=== PATIENT | female | born 1995 | race Caucasian/White ===

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

== ENCOUNTER 2017-09-21 13:14 | Emergency (ER) | payer OTHER ==
[~2017-09-21] VITALS: Ht 160 cm; Wt 47.9 kg
[~2017-09-21 13:14] MED LIST: AMPH15CA7 PO; VNTHFA/IN INH
[2017-09-21 13:20] VITALS: Ht 160 cm; Wt 47.9 kg
[2017-09-21 14:59] VITALS: BP 114/74; PULSE 84; O2SAT 96
--- NOTE | 2017-09-22 16:38 | EMERGENCY ROOM VISIT NOTE ---
ED Visit Note First contact with patient: 13:29 Chief Complaint: Feeling tired. History of Present Illness: Ms. Rao is a 22-year-old white female who ambulates into the ED accompanied by female friend. Patient reports that she has been on Adderall for attention deficit order for the last 3 years. She reports since starting Adderall 3 years ago she does not like how the medication makes her feel. She reports she contacted her insurance company today to see if she could stop the medication and they encouraged her to come to the emergency department to have her vital signs checked. Patient reports over the last 3 years she reports her Adderall makes her feel tired and depressed. She reports this has been slightly increased in severity. She also reports that she feels her sleep is being disturbed because of the Adderall. As I continue with my assessment patient also reports that she wants to know if she could be referred to someone to talk about these issues including her depression. When question about her tiredness patient was not able to give me any specific symptoms. She reports she does not feel like she is sleeping more or doing more activities. She denied all physical complaints, alcohol and drug use. She denies suicidal ideation, homicidal ideation, hallucinations and all medical complaints. Review of Systems: As noted above in history of present illness. All body systems were reviewed and found to be negative as noted above. Past Medical History: Attention deficit disorder Current Medications: Adderall. Allergies to Medications: Patient denies. Social History: Patient is currently University student; she feels safe in her home environment; she denies tobacco, alcohol and illicit drug use. Physical Examination: Vital Signs: Date Time Temp Pulse Resp B/P (MAP) Pulse Ox O2 Delivery O2 Flow Rate FiO2 09/21/17 14:59 84 18 114/74 96 09/21/17 13:20 98 18 135/93 100 Room Air GENERAL: 22-year-old female in no acute distress, nontoxic-appearing, afebrile and hemodynamically stable. PSYCHOLOGICAL: Patient is not disheveled and appears appropriate. She is pleasant and cooperative with my conversation. She does not seem to be responding to any internal stimuli. I do not appreciate any delusional thought pattern. As previously noted she denies hallucinations. She denies suicidal or homicidal ideation. Mood was slightly depressed. Her affect was normal. NEUROLOGICAL: Awake, alert and oriented to person, place and time. Answering questions appropriately and following commands. Normal gait. Good hand eye coordination. ED Course: Patient is assessed as noted above. Patient's medication list was reviewed. I did request that [facility] psychiatric showcase maker evaluate the patient and asked for her recommendations. Recommends included staying on her medication until she can follow-up with her psychiatrist at home and she was given a list of local psychologists and psychiatrists to communicate with for further evaluation. I did repeat with the patient prior to discharge and informed her that I could not make the recommendation of her stopping her at her all. She said that she come from either the person prescribing the medication or seeing an additional specialist as was noted above. Clinical Impression: Medication advice. Possible worsening depression. Possible medication reaction. Disposition: Patient discharged home in stable condition accompanied by female friend. Plan: Patient was encouraged to follow-up with her primary care providers or seek advice locally from the list of contacts given by the case management department. Patient was encouraged return the ED for any homicidal or suicidal ideations or any new/concerning symptoms.
== END 2017-09-21 15:00 | disposition home or self-care (01) ==
LOC: C.EDB 13:16 → C.EDD 15:00
DX: R53.83 Other fatigue (principal); F90.9 Attention-deficit hyperactivity disorder, unspecified type; Z79.899 Other long term (current) drug therapy; F32.9 Major depressive disorder, single episode, unspecified